=== PATIENT | male | born 1990 | race Two or more races ===

== ENCOUNTER 2021-01-23 14:52 | Emergency (ER) | payer MEDICAID ==
[~2021-01-23] VITALS: Ht 170.2 cm; Wt 88.0 kg
[2021-01-23] MEDS ORDERED: LIDOcaine 1% W/epiNEPHrine 1:200,000 10ml vial IJ ONE (17:25)
[2021-01-23] MEDS ORDERED: TETanus/Pertussis (Acell)/Diphther VAC/PF (Tdap-Adult) 0.5ml syringe IMVAC ONE (17:25)
--- NOTE | 2021-01-23 17:48 | NUR ---
RIGHT FOREARM NEAR ELBOW WRAPPED IN GAUZE AND KERLIX LARGE LACERATION
[2021-01-23] MEDS ORDERED: CEPH-585 PO (18:29)
[2021-01-23 19:17] VITALS: BP 155/91
== END 2021-01-23 19:19 | disposition home or self-care (01) ==
LOC: ER 14:53
DX: S51.811A Laceration without foreign body of right forearm, initial encounter (principal); M79.601 Pain in right arm; Z20.3 Contact with and (suspected) exposure to rabies; Z79.2 Long term (current) use of antibiotics; X58.XXXA Exposure to other specified factors, initial encounter; Y93.89 Activity, other specified; Y92.89 Other specified places as the place of occurrence of the external cause; Y99.8 Other external cause status
CPT/HCPCS: 12002; 12032; 90471; 90715; 99283; 99284